=== PATIENT | female | born 1950 | race Caucasian/White ===

== ENCOUNTER 2019-06-24 18:25 | Emergency (ER) | payer MEDICARE, OTHER ==
[~2019-06-24] VITALS: Ht 160 cm; Wt 90.7 kg
[2019-06-24] MEDS ORDERED: LIPITOR40 MG PO (18:50)
[2019-06-24] MEDS ORDERED: HUMALOG100 UNIT/1 SUBQ (18:50)
[2019-06-24] MEDS ORDERED: NIASPAN 500 MG500 M1 PO (18:51)
[2019-06-24] MEDS ORDERED: ASA81BEC PO (18:53)
[2019-06-24 19:09] LABS: ABSOLUTE BASOPHILS 0.1 thou/uL (0.0-0.2); ABSOLUTE EOSINOPHILS 0.2 thou/uL (0.0-0.7); ABSOLUTE LYMPHOCYTES 1.4 thou/uL (0.8-5.3); ABSOLUTE MONOCYTES 0.9 thou/uL (0.0-1.2); BASOPHILS 0.8 %; EOSINOPHILS 2.2 %; HEMOGLOBIN 14.7 gm/dL (12.0-15.0); LYMPHOCYTES 13.3 %; MCHC 34.3 g/dL (28.0-37.0); MCV 87.6 fL (80.0-100.0); MONOCYTES 8.8 %; MPV 7.6 fl. (7.2-11.1); NUCLEATED RBCS 0 /100WBC; PLATELET COUNT* 279 thou/uL (150-400); POLYS 74.9 %; RBC 4.91 mil/uL (4.20-5.00); WBC 10.7 thou/uL (4.0-11.0)
[2019-06-24 19:18] LABS: CALCIUM 8.1 mg/dL (8.5-10.1); CREATININE 0.8 mg/dL (0.6-1.3); POTASSIUM 4.1 mmol/L (3.5-5.1)
[2019-06-24 19:23] LABS: ALBUMIN 3.5 g/dL (3.4-5.0); TOTAL BILIRUBIN 0.3 mg/dL (<0.1-1.0); TOTAL PROTEIN 7.2 g/dL (6.4-8.2)
[2019-06-24] MEDS ORDERED: FLEXERIL PO (21:31)
[2019-06-24] MEDS ORDERED: HYDROCODON-ACE1 EAC7 PO (21:31)
[2019-06-24 21:50] VITALS: BP 175/95
--- NOTE | 2019-06-25 13:39 | EKG ---
[place] [address] ELECTROCARDIOGRAM REPORT Name: JOSE MADERA Sondra Room: [facility]#: [id number] Admission: 06/24/19 Attend Phys: Discharge: 06/24/19 Date of : 54 Report #: [id number] THIS REPORT FOR: //name// [facility] ED Test Date: 2019-06-24 Test Time: 19:03:18 Pat Name: JOSE MADERA Department: Room: Gender: F [employer]: [place] : 1950 Requested By: Mack Yates Order Number: [id number] MD: Travis Howard Measurements Intervals [place] Rate: 106 P: 34 UT: 169 QRS: 8 QRSD: 91 T: 86 QT: 346 QTc: 460 Interpretive Statements Sinus tachycardia Probable left atrial enlargement Anteroseptal infarct, old Baseline wander in lead(s) V2 No previous ECG available for comparison Electronically Signed On 06-25-2019 13:38:54 ASSISTANT NURSE MANAGER by Travis Howard [email or web address] <ELECTRONICALLY SIGNED> By: Travis Howard MD, [facility] 06/25/19 1338 02 02 Travis Howard MD, FACC /EPI
== END 2019-06-24 21:50 | disposition home or self-care (01) ==
LOC: M.ERS 18:25
PROVIDERS: Emergency Medicine Emergency Medical Services
DX: S16.1XXA Strain of muscle, fascia and tendon at neck level, initial encounter (principal); V89.2XXA Person injured in unspecified motor-vehicle accident, traffic, initial encounter; Y92.89 Other specified places as the place of occurrence of the external cause; Y93.89 Activity, other specified; Y99.8 Other external cause status